=== PATIENT | male | born 1985 | race American Indian/Alaskan Native ===

== ENCOUNTER 2017-05-02 20:06 | Emergency (ER) | payer OTHER ==
[2017-05-02 21:56] VITALS: BP 147/97
[2017-05-02] MEDS ORDERED: TYLENOL PO ONE (21:57)
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
[2017-05-02] MEDS ORDERED: NORCO 5/325 PO ONE (23:41)
[2017-05-02] MEDS ORDERED: FLEXERIL PO ONE (23:41)
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
[2017-05-02] MEDS ORDERED: NACL ONE (23:57)
[2017-05-03 00:18] LABS: Basophils % (Auto) 0.6 % (0.0-1.8); Eosinophils % (Auto) 1.1 % (0.0-4.3); Hematocrit 51.8 % (35.5-45.6); Hemoglobin 17.2 gm/dl (11.8-15.2); Mean Corpuscular HGB Conc 33 % (32-34); Mean Corpuscular Hemoglobin 28 pg (28-32); Mean Corpuscular Volume 83 fl (84-94); Platelet Count 306 K/mm3 (140-440); Red Blood Count 6.22 M/mm3 (3.65-5.03); Red Cell Distribution Width 13.6 % (13.2-15.2); White Blood Count 10.8 K/mm3 (4.5-11.0)
[2017-05-03 00:38] LABS: Anion Gap 23 mmol/L; BUN/Creatinine Ratio 15.55; Blood Urea Nitrogen 14 mg/dL (9-20); Calcium 9.7 mg/dL (8.4-10.2); Carbon Dioxide 22 mmol/L (22-30); Chloride 97.3 mmol/L (98-107); Glucose 92 mg/dL (75-100); Potassium 4.3 mmol/L (3.6-5.0); Sodium 138 mmol/L (137-145)
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
== END 2017-05-03 03:30 | disposition home or self-care (01) ==
LOC: ED 20:06
DX: Z04.1 Encounter for examination and observation following transport accident (principal); V89.2XXA Person injured in unspecified motor-vehicle accident, traffic, initial encounter; Y93.89 Activity, other specified; Y99.9 Unspecified external cause status; Y92.410 Unspecified street and highway as the place of occurrence of the external cause
CPT/HCPCS: 36415; 70450; 71260; 72125; 74177; 80048; 85025; 99284; Q9967